=== PATIENT | female | born 1935 | race Caucasian/White ===

== ENCOUNTER 2021-05-04 10:51 | Emergency (ER) | payer MEDICARE, SELFPAY ==
[2021-05-04 12:05] VITALS: BP 159/61; PULSE 59; RESP 20; TEMP 36.3; O2SAT 97; BMI 25.7
--- NOTE | 2021-05-04 12:22 | XR_ITS ---
FINAL REPORT CLINICAL HISTORY: PAIN FINDINGS: CERVICAL SPINE 3 views were obtained. There is no acute fracture. There is no malalignment. There is mild disc space narrowing of the C5-C6 and C6-C7. There is mild anterior posterior osteophyte formation. There is no soft tissue abnormality. The patient is edentulous. IMPRESSION: No acute bony abnormality. Reviewed, Interpreted and Dictated by Demetrio Trimble MD Transcribed by Kendal Tran Authenticated by Demetrio Trimble MD on 05/04/2021 01:37:15 PM [facility]
--- NOTE | 2021-05-04 12:51 | HMH.EDUTC ---
[facility] [place] Disposition Clinical Impression: Muscle spasm Disposition: Home, Self-Care Condition on Discharge: Good Instructions: DI for Muscle Spasm Additional Instructions: *Naproxen every 12 hours with meal as needed for pain/inflammation *Not additional anti-inflammatory like Ibuprofen motrin, aleve, advil with the above amount of Naproxen. You can still take Tylenol every 4 hours as needed if you need something else for pain *Ice 20 minutes every 2 hours for the first 48 hours after the initial injury followed by moist heat every 20 minutes 3-4 times a day to affected area *Muscle relaxer every 12 hours as needed for muscle spasms but remember, it WILL cause drowsiness You cannot take it and drive, operate machinery or care for small children. Over the counter muscle rubs or patches may help *Keep this area active, no movement leads to more stiffness, However take it easy and avoid heavy lifting pushing or pulling *Follow up with you family doctor if no improvement for further treatment Return if needed Prescriptions: methocarbamoL [Methocarbamol 500mg Tablet] 500 mg PO BID PRN #10 tab PRN Reason: Muscle Spasm Transmission Status: Received by [facility] Naproxen [Naproxen 500mg tab] 500 mg PO BID #10 tab Transmission Status: Received by [facility] Referrals: Penny Ingram APRN [Primary Care Provider] - As needed Time of Disposition: 13:18 Medical Decision Making - Taye Inquiry Pt receiving controlled substance: No Taye was queried for this patient: No Vital Signs: 05/04/21 12:05 05/04/21 13:18 Temperature 97.3 F L 97.3 F L Temperature Source Temporal Artery Scan Pulse Rate 59 L Pulse Rate [Right Brachial] 59 L Respiratory Rate 20 20 Blood Pressure 159/61 H Blood Pressure [Right Arm] 159/61 H Blood Pressure Mean [Right Arm] 93 Blood Pressure Source [Right Arm] Automatic Cuff Blood Pressure Position [Right Arm] Sitting 02 Sat by Pulse Oximetry 97 Oxygen Delivery Method Room Air - Radiology Data #1 Image(s): C-Spine Image Reviewed: Yes I reviewed the patient's radiology image w/the ED provider Preliminary Findings: No Fracture Seen [facility] [place] HPI - General Stated complaint: neck/back pain, no accident Time Seen by Provider: 05/04/21 12:51 Mode of Arrival: Ambulatory Source of Information: Patient Limitations: No Limitations Description of Symptoms (Recalled from Triage Doc. by RN): PATIENT C/O INTERMITTEN UPPER BACK PAIN NEAR NECK THAT RADIATES DOWN RIGHT ARM X 1 WEEK HEENT Symptoms (Recalled from RN notes): No Resp Symptoms (Recalled from RN notes): No Skin Symptoms (Recalled from RN notes): No MS Symptoms (Recalled from RN notes): Yes Functional Status (Recalled from RN notes): WNL - History of Present Illness Provider Complaint: Patient states that she has been having pain on and off for about a week on her right side of the base of her neck that feels tight and shoots pain into her shoulder at times states that pain is worse when she lays down not sure if she may have slept wrong and pulled something in her neck State that pain has continued for about a week so today seh came in to get it checked Denies falling denies known injury - Related Data Previous Rx's Medication Instructions Recorded Naproxen [Naproxen 500mg tab] 500 mg PO BID #10 tab 05/04/21 methocarbamoL [Methocarbamol 500mg 500 mg PO BID PRN #10 tab 05/04/21 Tablet] Allergies Allergy/AdvReac Type Severity Reaction Status Date / Time No Known Allergies Allergy Verified 05/04/21 12:21 - Worker's Comp Is this a Worker's Comp case?: No [facility] History - Hepatitis A Screen Drug use history?: No High risk sexual behaviors?: No History of sexually transmitted infection?: No Currently employed?: No Childcare worker?: No Do you have indoor plumbing?: Yes Do you have electricity?: Yes Attestation statement:: This patient has been screened for Hepatitis A risk factors.
[2021-05-04 13:18] VITALS: BP 159/61; PULSE 59; RESP 20; TEMP 36.3; O2SAT 97
== END 2021-05-04 13:23 | disposition home or self-care (01) ==
PROVIDERS: Emergency Provider Nurse Practitioner; PCP Nurse Practitioner Family
DX: M62.838 Other muscle spasm (principal); M54.6 Pain in thoracic spine
CPT/HCPCS: G0463; 72040; 99202